=== PATIENT | male | born 1955 | race Caucasian/White ===

== ENCOUNTER 2021-05-08 08:32 | Inpatient (IN) | payer MEDICARE, OTHER ==
[~2021-05-08] VITALS: Ht 185.4 cm; Wt 99.8 kg
[~2021-05-08 08:32] MED LIST: AMITRIPTYLINE50 MG PO; ETODOLAC400 M1 PO; FINASTERIDE5 M1 PO; NEURONTIN300 MG PO; PANTOPRAZOLE SO40 MG PO; SIMVASTATIN40 MG PO; TERAZOSIN5 MG PO; TOPROL XL25 MG PO; ULTRAM50 MG PO; ZANAFLEX4 M1 PO; ZOLOFT100 MG PO
[2021-05-08 08:49] VITALS: BP 115/76
[2021-05-08 08:58] LABS: BASO % 0.3 % (0.0-1.0); EOS % 0.4 % (1.0-4.0); HEMATOCRIT 43.6 % (42.0-52.0); LYMPH # 1.1 10*3/uL (1.3-4.4); LYMPH % 10.2 % (27.0-41.0); MEAN CORPUSCULAR HGB 31.9 pg (27.0-31.0); MEAN CORPUSCULAR HGB CONC 33.9 g/dl (33.0-37.0); MEAN PLATELET VOLUME 10.6 fl (9.6-12.3); MONO # 1.5 10*3/uL (0.1-1.0); MONO % 13.3 % (3.0-9.0); NEUT # 8.3 10*3/uL (2.3-7.9); NEUT % 75.5 % (47.0-73.0); PLATELET COUNT AUTOMATED 165 10*3/uL (130-400); RED BLOOD COUNT 4.64 10*6/uL (4.50-5.90); RED CELL DISTRI WIDTH 12.6 % (0-14.5)
[2021-05-08 09:10] LABS: ACT PARTIAL THROMBO TIME 26.7 SECONDS (20.0-32.1)
[2021-05-08 09:13] LABS: ALBUMIN 3.2 gm/dl (3.1-4.5); ALKALINE PHOSPHATASE 64 U/L (45-117); BUN 19 mg/dl (7-24); CHLORIDE 109 mmol/L (98-107); CREATININE 0.97 mg/dL (0.70-1.30); POTASSIUM 3.6 mmol/L (3.5-5.1); SGOT/AST 11 IU/L (3-35); SGPT/ALT 24 U/L (12-78); SODIUM 141 mmol/L (136-145); TOTAL PROTEIN 6.4 gm/dL (6.4-8.2)
[2021-05-08 12:10] VITALS: BP 133/76
[2021-05-08] MEDS ORDERED: HYDROCODONE-AC1 EAC2 PO (13:08)
[2021-05-08] MEDS ORDERED: MELOXICAM15 MG PO (13:08)
[2021-05-08 19:36] VITALS: BP 128/65
[2021-05-08 22:09] VITALS: BP 132/62
[2021-05-09 01:54] VITALS: BP 137/63
[2021-05-09 02:15] VITALS: BP 137/81
[2021-05-09 06:00] LABS: BUN 16 mg/dl (7-24); CHLORIDE 108 mmol/L (98-107); CREATININE 0.95 mg/dL (0.70-1.30); FREE T4 0.97 ng/dl (0.76-1.46); POTASSIUM 4.3 mmol/L (3.5-5.1); SODIUM 139 mmol/L (136-145)
[2021-05-09 06:17] LABS: BASO % 0.5 % (0.0-1.0); EOS # 0.1 10*3/uL (0.0-0.4); EOS % 0.6 % (1.0-4.0); HEMATOCRIT 44.1 % (42.0-52.0); LYMPH # 0.7 10*3/uL (1.3-4.4); LYMPH % 8.9 % (27.0-41.0); MEAN CELL VOLUME 96.1 fl (80.0-94.0); MEAN CORPUSCULAR HGB 32.2 pg (27.0-31.0); MEAN CORPUSCULAR HGB CONC 33.6 g/dl (33.0-37.0); MEAN PLATELET VOLUME 10.8 fl (9.6-12.3); MONO # 0.8 10*3/uL (0.1-1.0); MONO % 10.4 % (3.0-9.0); NEUT # 6.2 10*3/uL (2.3-7.9); PLATELET COUNT AUTOMATED 135 10*3/uL (130-400); RED BLOOD COUNT 4.59 10*6/uL (4.50-5.90); RED CELL DISTRI WIDTH 12.6 % (0-14.5); WHITE BLOOD COUNT 7.9 10*3/uL (4.8-10.8)
[2021-05-09 08:00] VITALS: BP 136/74
[2021-05-09 12:00] VITALS: BP 155/78
[2021-05-09 15:57] VITALS: BP 150/82
[2021-05-09 20:00] VITALS: BP 136/84
[2021-05-10] VITALS: BP 132/88; BP 135/95
[2021-05-10] MEDS ORDERED: SIMVASTATIN5 MG PO (03:51)
[2021-05-10] MEDS ORDERED: VITAMIN C (03:52)
[2021-05-10] MEDS ORDERED: VITAMIN D3 (03:52)
[2021-05-10] MEDS ORDERED: TRAZODONE150 MG PO (03:53)
[2021-05-10 06:20] LABS: BASO % 0.1 % (0.0-1.0); EOS % 0.2 % (1.0-4.0); HEMATOCRIT 44.4 % (42.0-52.0); LYMPH # 0.6 10*3/uL (1.3-4.4); LYMPH % 7.5 % (27.0-41.0); MEAN CELL VOLUME 94.3 fl (80.0-94.0); MEAN CORPUSCULAR HGB 31.8 pg (27.0-31.0); MEAN CORPUSCULAR HGB CONC 33.8 g/dl (33.0-37.0); MONO # 0.8 10*3/uL (0.1-1.0); MONO % 9.4 % (3.0-9.0); NEUT # 6.7 10*3/uL (2.3-7.9); NEUT % 82.3 % (47.0-73.0); PLATELET COUNT AUTOMATED 156 10*3/uL (130-400); RED BLOOD COUNT 4.71 10*6/uL (4.50-5.90); RED CELL DISTRI WIDTH 12.4 % (0-14.5); WHITE BLOOD COUNT 8.1 10*3/uL (4.8-10.8)
[2021-05-10 06:28] LABS: CHLORIDE 109 mmol/L (98-107); POTASSIUM 4.3 mmol/L (3.5-5.1); SODIUM 140 mmol/L (136-145)
[2021-05-10 06:43] LABS: ALBUMIN 2.9 gm/dl (3.1-4.5); ALKALINE PHOSPHATASE 60 U/L (45-117); BUN 21 mg/dl (7-24); CREATININE 0.98 mg/dL (0.70-1.30); SGOT/AST 26 IU/L (3-35); SGPT/ALT 50 U/L (12-78); TOTAL PROTEIN 6.7 gm/dL (6.4-8.2)
[2021-05-10 08:00] VITALS: BP 133/81
[2021-05-10 12:00] VITALS: BP 128/76
[2021-05-10 20:00] VITALS: BP 150/81
[2021-05-10] MEDS ORDERED: HYDROCODONE-AC1 EAC2 PO (22:43)
[2021-05-11] VITALS: BP 126/64
[2021-05-11 08:00] VITALS: BP 128/77
[2021-05-11] MEDS ORDERED: MUCUS RELIEF600 MG PO (12:26)
[2021-05-11] MEDS ORDERED: HYDROXYZINE HCL25 MG PO (12:26)
[2021-05-11] MEDS ORDERED: AUGMENTIN 875875 MG PO (12:27)
[2021-05-11] MEDS ORDERED: AMITRIPTYLINE50 MG PO (12:29)
== END 2021-05-11 14:34 | disposition home or self-care (01) | DRG 177 ==
LOC: ED 08:32 → EDHOLD 10:52 → 4E 10:52
PROVIDERS: Internal Medicine; Student in an Organized Health Care Education/Training Program; ADMIT Internal Medicine; ATTEND Internal Medicine
DX: J15.6 Pneumonia due to other Gram-negative bacteria (principal); J96.01 Acute respiratory failure with hypoxia; G43.909 Migraine, unspecified, not intractable, without status migrainosus; H65.92 Unspecified nonsuppurative otitis media, left ear; Z20.822 Contact with and (suspected) exposure to COVID-19; R22.0 Localized swelling, mass and lump, head; E87.8 Other disorders of electrolyte and fluid balance, not elsewhere classified; R73.9 Hyperglycemia, unspecified; E80.6 Other disorders of bilirubin metabolism; F41.9 Anxiety disorder, unspecified; N40.0 Benign prostatic hyperplasia without lower urinary tract symptoms; K21.9 Gastro-esophageal reflux disease without esophagitis; I10 Essential (primary) hypertension; Z79.1 Long term (current) use of non-steroidal anti-inflammatories (NSAID); Z79.899 Other long term (current) drug therapy; Z82.49 Family history of ischemic heart disease and other diseases of the circulatory system

== ENCOUNTER 2022-07-05 06:05 | Inpatient (IN) | payer MEDICARE, OTHER ==
[~2022-07-05] VITALS: Ht 182.8 cm; Wt 89.0 kg
[~2022-07-05 06:05] MED LIST changes: +AUGMENTIN 875875 MG PO; +HYDROCODONE-AC1 EAC2 PO; +HYDROXYZINE HCL25 MG PO; +MELOXICAM15 MG PO; +MUCUS RELIEF600 MG PO; +SIMVASTATIN5 MG PO; +TRAZODONE150 MG PO; +VITAMIN C; +VITAMIN D3
[2022-07-05 06:13] VITALS: BP 130/100
[2022-07-05 06:28] LABS: BASO % 0.3 % (0.0-1.0); EOS # 0.1 10*3/uL (0.0-0.4); EOS % 1.2 % (1.0-4.0); HEMATOCRIT 52.8 % (42.0-52.0); LYMPH % 16.4 % (27.0-41.0); MEAN CELL VOLUME 90.7 fl (80.0-94.0); MEAN CORPUSCULAR HGB 31.4 pg (27.0-31.0); MEAN CORPUSCULAR HGB CONC 34.7 g/dl (33.0-37.0); MEAN PLATELET VOLUME 10.4 fl (9.6-12.3); MONO # 0.7 10*3/uL (0.1-1.0); MONO % 11.9 % (3.0-9.0); NEUT # 4.2 10*3/uL (2.3-7.9); NEUT % 69.7 % (47.0-73.0); PLATELET COUNT AUTOMATED 160 10*3/uL (130-400); RED BLOOD COUNT 5.82 10*6/uL (4.50-5.90); RED CELL DISTRI WIDTH 12.3 % (0-14.5); WHITE BLOOD COUNT 6.1 10*3/uL (4.8-10.8)
[2022-07-05 07:08] LABS: ALKALINE PHOSPHATASE 61 U/L (46-116); BUN 18 mg/dl (9-23); CHLORIDE 105 mmol/L (98-107); LIPASE 33 U/L (12-53); POTASSIUM 3.7 mmol/L (3.4-5.1); SGPT/ALT 18 U/L (10-49); TOTAL PROTEIN 7.1 gm/dL (6.0-8.0)
[2022-07-05 11:15] VITALS: BP 130/78
[2022-07-05 16:00] VITALS: BP 152/76
[2022-07-05] MEDS ORDERED: VITAMIN D375 MCG PO (16:27)
[2022-07-05] MEDS ORDERED: SERTRALINE HCL150 MG PO (16:27)
[2022-07-05] MEDS ORDERED: VENLAFAXINE37.5 M1 PO (16:27)
[2022-07-05] MEDS ORDERED: LOPRESSOR25 MG PO (16:28)
[2022-07-05] MEDS ORDERED: LIPITOR10 MG PO (16:28)
[2022-07-05] MEDS ORDERED: CETIRIZINE10 MG PO (16:29)
[2022-07-05 20:00] VITALS: BP 153/84
[2022-07-06] VITALS: BP 105/58
[2022-07-06 00:10] LABS: BILIRUBIN Negative (Negative); BLOOD Negative (Negative); CLARITY Clear (Clear); COLOR Yellow (Yellow); GLUCOSE Negative (Negative); KETONE Negative (Negative); LEUKO ESTERASE Negative (Negative); NITRITE Negative (Negative); SPECIFIC GRAVITY <= 1.005 (1.001-1.030); UROBILINOGEN 0.2 E.U./dl (0.0-1.0)
[2022-07-06 00:27] LABS: RBC 0-2 rbc/hpf (0-2)
[2022-07-06 06:48] LABS: BASO % 0.6 % (0.0-1.0); EOS # 0.1 10*3/uL (0.0-0.4); EOS % 1.4 % (1.0-4.0); HEMATOCRIT 41.2 % (42.0-52.0); LYMPH % 27.5 % (27.0-41.0); MEAN CORPUSCULAR HGB 31.4 pg (27.0-31.0); MEAN CORPUSCULAR HGB CONC 33.7 g/dl (33.0-37.0); MEAN PLATELET VOLUME 10.6 fl (9.6-12.3); MONO # 0.5 10*3/uL (0.1-1.0); MONO % 14.5 % (3.0-9.0); NEUT # 1.9 10*3/uL (2.3-7.9); NEUT % 55.7 % (47.0-73.0); PLATELET COUNT AUTOMATED 121 10*3/uL (130-400); RED BLOOD COUNT 4.43 10*6/uL (4.50-5.90); RED CELL DISTRI WIDTH 12.3 % (0-14.5); WHITE BLOOD COUNT 3.5 10*3/uL (4.8-10.8)
[2022-07-06 07:10] LABS: BUN 11 mg/dl (9-23); CHLORIDE 112 mmol/L (98-107); CHOLESTEROL 78 mg/dL (<200); FREE T4 0.96 ng/dl (0.89-1.76); POTASSIUM 3.9 mmol/L (3.4-5.1); TRIGLYCERIDES 103 mg/dl (<150)
[2022-07-06 07:27] LABS: LDL CHOLESTEROL 38 mg/dL (9-159)
[2022-07-06 08:00] VITALS: BP 162/78
[2022-07-06 08:12] LABS: VITAMIN D, 25-HYDROXY 55.8 ng/mL (30-100)
[2022-07-06 11:26] VITALS: BP 156/75
[2022-07-06] MEDS ORDERED: PANTOPRAZOLE SO40 MG PO (14:35)
[2022-07-06] MEDS ORDERED: Carafate1 GM PO (14:35)
== END 2022-07-06 15:55 | disposition home or self-care (01) | DRG 392 ==
LOC: ED 06:05 → 4E 09:18 → EDHOLD 09:18 → 4E 14:42
PROVIDERS: Emergency Medicine; Registered Nurse; ADMIT Student in an Organized Health Care Education/Training Program; ATTEND Student in an Organized Health Care Education/Training Program
DX: K52.9 Noninfective gastroenteritis and colitis, unspecified (principal); N40.0 Benign prostatic hyperplasia without lower urinary tract symptoms; K21.9 Gastro-esophageal reflux disease without esophagitis; E86.0 Dehydration; F41.9 Anxiety disorder, unspecified; R13.10 Dysphagia, unspecified; E78.5 Hyperlipidemia, unspecified; I10 Essential (primary) hypertension; Z80.59 Family history of malignant neoplasm of other urinary tract organ; Z82.49 Family history of ischemic heart disease and other diseases of the circulatory system

== ENCOUNTER 2022-07-29 08:55 | Emergency (ER) | payer MEDICARE, OTHER ==
[~2022-07-29] VITALS: Ht 185.4 cm; Wt 88.5 kg
[~2022-07-29 08:55] MED LIST changes: +CARAFATE1 GM/10 ML PO; +CETIRIZINE10 MG PO; +Carafate1 GM PO; +LIPITOR10 MG PO; +LOPRESSOR25 MG PO; +SERTRALINE HCL150 MG PO; +VENLAFAXINE37.5 M1 PO; +VITAMIN D375 MCG PO
[2022-07-29] MEDS ORDERED: AMOX-CLAV 875-1 EACH PO ×2 (12:33)
[2022-07-31] MEDS ORDERED: LIPITOR10 MG PO (17:27)
== END 2022-07-29 12:59 | disposition home or self-care (01) ==
LOC: ED 08:55
DX: H70.90 Unspecified mastoiditis, unspecified ear (principal); G43.909 Migraine, unspecified, not intractable, without status migrainosus; I10 Essential (primary) hypertension; F32.A Depression, unspecified; F41.9 Anxiety disorder, unspecified; Z98.890 Other specified postprocedural states

== ENCOUNTER → 2022-08-17 | Day surgery (SDC) | payer MEDICARE, OTHER ==
[~2022-08-17] VITALS: Ht 185.4 cm; Wt 88.5 kg
[~2022-08-17] MED LIST changes: +AMOX-CLAV 875-1 EACH PO; +CARAFATE1 G1 PO
[2022-08-17 10:22] VITALS: BP 144/90
[2022-08-17 11:25] VITALS: BP 127/60
[2022-08-17 11:37] VITALS: BP 134/71
[2022-08-17 11:55] VITALS: BP 124/70
== END | disposition home or self-care (01) ==
LOC: SDC 07-31 11:00
PROVIDERS: ATTEND Surgery
DX: Z12.11 Encounter for screening for malignant neoplasm of colon (principal); K29.50 Unspecified chronic gastritis without bleeding; K29.80 Duodenitis without bleeding; K21.9 Gastro-esophageal reflux disease without esophagitis; I10 Essential (primary) hypertension; E78.00 Pure hypercholesterolemia, unspecified; F41.9 Anxiety disorder, unspecified; F32.A Depression, unspecified; G43.909 Migraine, unspecified, not intractable, without status migrainosus; Z98.890 Other specified postprocedural states; Z79.899 Other long term (current) drug therapy

== ENCOUNTER 2024-03-03 12:18 | Emergency (ER) | payer MEDICARE, OTHER ==
[~2024-03-03] VITALS: Ht 185.4 cm; Wt 90.7 kg
[2024-03-03] MEDS ORDERED: Bacitracin Zinc 14 GM TUBE T ONE (14:30)
== END 2024-03-03 14:38 | disposition home or self-care (01) ==
LOC: ED 12:18
DX: S51.811A Laceration without foreign body of right forearm, initial encounter (principal); I10 Essential (primary) hypertension; F32.A Depression, unspecified; F41.9 Anxiety disorder, unspecified; G43.909 Migraine, unspecified, not intractable, without status migrainosus; E78.00 Pure hypercholesterolemia, unspecified; Z98.890 Other specified postprocedural states; W54.0XXA Bitten by dog, initial encounter; Y93.89 Activity, other specified; Y92.89 Other specified places as the place of occurrence of the external cause; Y99.8 Other external cause status

== ENCOUNTER → 2024-03-06 | Outpatient (CLI) | payer MEDICARE, OTHER | END | disposition home or self-care (01) | LOC: WOUNDCARE 09:21 | PROVIDERS: ATTEND Nurse Practitioner Family | DX: S41.111A Laceration without foreign body of right upper arm, initial encounter (principal); I10 Essential (primary) hypertension; K21.9 Gastro-esophageal reflux disease without esophagitis; G20.A1 Parkinson's disease without dyskinesia, without mention of fluctuations; G30.9 Alzheimer's disease, unspecified; F02.80 Dementia in other diseases classified elsewhere, unspecified severity, without behavioral disturbance, psychotic disturbance, mood disturbance, and anxiety; Z79.82 Long term (current) use of aspirin; Z79.899 Other long term (current) drug therapy; X58.XXXD Exposure to other specified factors, subsequent encounter; Y93.89 Activity, other specified; Y92.89 Other specified places as the place of occurrence of the external cause; Y99.8 Other external cause status ==

== ENCOUNTER → 2024-03-12 | Outpatient (CLI) | payer MEDICARE, OTHER | END | disposition home or self-care (01) | LOC: WOUNDCARE 02:11 | PROVIDERS: ATTEND Nurse Practitioner Family | DX: S41.111D Laceration without foreign body of right upper arm, subsequent encounter (principal); I10 Essential (primary) hypertension; K21.9 Gastro-esophageal reflux disease without esophagitis; G20.A1 Parkinson's disease without dyskinesia, without mention of fluctuations; G30.9 Alzheimer's disease, unspecified; F02.80 Dementia in other diseases classified elsewhere, unspecified severity, without behavioral disturbance, psychotic disturbance, mood disturbance, and anxiety; Z79.82 Long term (current) use of aspirin; Z79.899 Other long term (current) drug therapy; X58.XXXD Exposure to other specified factors, subsequent encounter ==

== ENCOUNTER → 2024-03-19 | Outpatient (CLI) | payer MEDICARE, OTHER | END | disposition home or self-care (01) | LOC: WOUNDCARE 00:51 | PROVIDERS: ATTEND Nurse Practitioner Family | DX: S51.811D Laceration without foreign body of right forearm, subsequent encounter (principal); S41.111D Laceration without foreign body of right upper arm, subsequent encounter; I10 Essential (primary) hypertension; K21.9 Gastro-esophageal reflux disease without esophagitis; G20.A1 Parkinson's disease without dyskinesia, without mention of fluctuations; G30.9 Alzheimer's disease, unspecified; F02.80 Dementia in other diseases classified elsewhere, unspecified severity, without behavioral disturbance, psychotic disturbance, mood disturbance, and anxiety; Z79.82 Long term (current) use of aspirin; Z79.899 Other long term (current) drug therapy; X58.XXXD Exposure to other specified factors, subsequent encounter ==

== ENCOUNTER → 2024-03-26 | Outpatient (CLI) | payer MEDICARE, OTHER | END | disposition home or self-care (01) | LOC: WOUNDCARE 01:52 | PROVIDERS: ATTEND Nurse Practitioner Family | DX: S51.811D Laceration without foreign body of right forearm, subsequent encounter (principal); S41.111D Laceration without foreign body of right upper arm, subsequent encounter; I10 Essential (primary) hypertension; K21.9 Gastro-esophageal reflux disease without esophagitis; G20.A1 Parkinson's disease without dyskinesia, without mention of fluctuations; G30.9 Alzheimer's disease, unspecified; F02.80 Dementia in other diseases classified elsewhere, unspecified severity, without behavioral disturbance, psychotic disturbance, mood disturbance, and anxiety; Z79.82 Long term (current) use of aspirin; Z79.899 Other long term (current) drug therapy; X58.XXXD Exposure to other specified factors, subsequent encounter ==

== ENCOUNTER 2024-09-09 18:03 | Emergency (ER) | payer MEDICARE, OTHER ==
[~2024-09-09] VITALS: Ht 185.4 cm; Wt 93.4 kg
[2024-09-09] MEDS ORDERED: SODIUM CHLORIDE 0.9% 1,000 ML IV ONE (19:00)
[2024-09-09] MEDS ORDERED: HYDROmorphone Hydrochloride 1 MG/ML SYR IV ONE (19:00)
[2024-09-09] MEDS ORDERED: Ondansetron Hydrochloride 4 MG/2 ML VIAL IV ONE (19:00)
[2024-09-09 19:16] LABS: BASO # 0.1 10*3/uL (0.0-0.1); BASO % 0.6 % (0.0-1.0); EOS # 0.1 10*3/uL (0.0-0.4); EOS % 1.1 % (1.0-4.0); HEMATOCRIT 43.6 % (42.0-52.0); MEAN CELL VOLUME 95.6 fl (80.0-94.0); MEAN CORPUSCULAR HGB 32.5 pg (27.0-31.0); MEAN CORPUSCULAR HGB CONC 33.9 g/dl (33.0-37.0); MEAN PLATELET VOLUME 10.1 fl (9.6-12.3); MONO # 0.7 10*3/uL (0.1-1.0); MONO % 7.8 % (3.0-9.0); NEUT # 6.8 10*3/uL (2.3-7.9); NEUT % 76.3 % (47.0-73.0); PLATELET COUNT AUTOMATED 184 10*3/uL (130-400); RED BLOOD COUNT 4.56 10*6/uL (4.50-5.90); RED CELL DISTRI WIDTH 12.8 % (0-14.5); WHITE BLOOD COUNT 8.9 10*3/uL (4.8-10.8)
[2024-09-09 19:36] LABS: ALKALINE PHOSPHATASE 71 U/L (46-116); BUN 19 mg/dl (9-23); CHLORIDE 106 mmol/L (98-107); POTASSIUM 3.4 mmol/L (3.4-5.1); TOTAL PROTEIN 6.5 gm/dL (6.0-8.0)
[2024-09-09 19:49] LABS: SGPT/ALT < 7 U/L (5-49)
[2024-09-09] MEDS ORDERED: cefTRIAXone Sodium 1 GM/10 ML SYR IV ONE (20:25)
[2024-09-09] MEDS ORDERED: Ketorolac Tromethamine 30 MG/ML VIAL IV ONE (20:25)
[2024-09-09] MEDS ORDERED: FLOMAX0.4 MG PO (21:02)
[2024-09-09] MEDS ORDERED: CIPRO500 MG PO (21:02)
[2024-09-09] MEDS ORDERED: Ondansetron4 MG PO (21:02)
[2024-09-09] MEDS ORDERED: PERCOCET 5-3251 EACH PO (21:02)
== END 2024-09-09 21:30 | disposition home or self-care (01) ==
LOC: ED 18:03
PROVIDERS: Nurse Practitioner Family
DX: N13.2 Hydronephrosis with renal and ureteral calculous obstruction (principal); I10 Essential (primary) hypertension; F32.A Depression, unspecified; F41.9 Anxiety disorder, unspecified; K21.9 Gastro-esophageal reflux disease without esophagitis; G43.909 Migraine, unspecified, not intractable, without status migrainosus; Z87.442 Personal history of urinary calculi; Z79.899 Other long term (current) drug therapy; Z98.890 Other specified postprocedural states

== ENCOUNTER 2024-09-19 12:43 | Emergency (ER) | payer OTHER ==
[~2024-09-19] VITALS: Wt 86.2 kg
[~2024-09-19 12:43] MED LIST changes: +CIPRO500 MG PO; +FLOMAX0.4 MG PO; +Ondansetron4 MG PO; +PERCOCET 5-3251 EACH PO
[2024-09-19 13:38] LABS: BASO % 0.1 % (0.0-1.0); HEMATOCRIT 44.3 % (42.0-52.0); MEAN CELL VOLUME 94.5 fl (80.0-94.0); MEAN CORPUSCULAR HGB 32.8 pg (27.0-31.0); MEAN CORPUSCULAR HGB CONC 34.8 g/dl (33.0-37.0); MEAN PLATELET VOLUME 9.8 fl (9.6-12.3); MONO # 0.7 10*3/uL (0.1-1.0); MONO % 4.1 % (3.0-9.0); NEUT # 14.4 10*3/uL (2.3-7.9); PLATELET COUNT AUTOMATED 231 10*3/uL (130-400); RED BLOOD COUNT 4.69 10*6/uL (4.50-5.90); RED CELL DISTRI WIDTH 12.5 % (0-14.5); WHITE BLOOD COUNT 16.4 10*3/uL (4.8-10.8)
[2024-09-19 14:02] LABS: ALKALINE PHOSPHATASE 69 U/L (46-116); BUN 25 mg/dl (9-23); CHLORIDE 103 mmol/L (98-107); POTASSIUM 3.3 mmol/L (3.4-5.1); TOTAL PROTEIN 6.8 gm/dL (6.0-8.0)
[2024-09-19 14:03] LABS: ETHYL ALCOHOL < 3.0 mg/dl (<3); SGPT/ALT < 7 U/L (5-49)
[2024-09-19 14:39] LABS: BILIRUBIN Negative (Negative); BLOOD Negative (Negative); CLARITY Cloudy (Clear); COLOR Yellow (Yellow); GLUCOSE Negative (Negative); KETONE Trace (Negative); LEUKO ESTERASE Negative (Negative); NITRITE Negative (Negative); PH 6.5 (4.5-8.0)
[2024-09-19 14:46] LABS: URINE AMPHETAMINES Negative (1000ng/ml); URINE BARBITURATES Negative (200ng/ml); URINE BENZODIAZEPINES Negative (200ng/ml); URINE CANNABINOIDS (THC) Positive (50ng/ml); URINE COCAINE Negative (300ng/ml); URINE METHADONE Negative (300ng/ml); URINE OPIATES Negative (300ng/ml); URINE PHENCYCLIDINE Negative (25ng/ml)
[2024-09-19 15:00] LABS: MUCOUS 1+
[2024-09-19] MEDS ORDERED: CEPHALEXIN 500 MG CAP PO ONE (15:25)
[2024-09-19] MEDS ORDERED: POTASSIUM CHLORIDE 20 MEQ TAB PO ONE (15:25)
[2024-09-19] MEDS ORDERED: ACETAMINOPHEN 325 MG TAB PO PRN (17:55)
[2024-09-19] MEDS ORDERED: Metoprolol Tartrate 25 MG TAB PO SCH (18:00)
[2024-09-19] MEDS ORDERED: Propranolol Hydrochloride 20 MG TAB PO SCH (18:00)
[2024-09-19] MEDS ORDERED: DOCUSATE SODIUM 100 MG CAP PO SCH (18:00)
[2024-09-19] MEDS ORDERED: VERAPAMIL HYDROCHLORIDE PO SCH (18:00)
[2024-09-19] MEDS ORDERED: CEPHALEXIN 500 MG CAP PO SCH (18:00)
[2024-09-19] MEDS ORDERED: CARBIDOPA-LEVO1 EAC6 PO ×3 (18:25)
[2024-09-19] MEDS ORDERED: VERAPAMIL HCL40 MG PO (18:26)
[2024-09-19] MEDS ORDERED: VENLAFAXINE HY150 M2 PO (18:28)
[2024-09-19] MEDS ORDERED: PROPRANOLOL HCL20 MG PO (18:30)
[2024-09-19] MEDS ORDERED: TOPROL XL25 MG PO (18:30)
[2024-09-19] MEDS ORDERED: COLACE100 MG PO (18:31)
[2024-09-19] MEDS ORDERED: CARBAMAZEPINE100 MG PO (18:42)
[2024-09-19] MEDS ORDERED: Carbidopa/Levodopa 25/100MG 1 TAB TAB PO SCH (20:00)
[2024-09-19] MEDS ORDERED: TRAZODONE HYDROCHLORIDE 150 MG PO SCH (22:00)
[2024-09-20] MEDS ORDERED: Carbidopa/Levodopa 25/100MG 1 TAB TAB PO SCH ×2 (07:30→12:00)
[2024-09-20] MEDS ORDERED: carBAMazepine 100 MG TAB PO SCH (08:00)
[2024-09-20] MEDS ORDERED: Venlafaxine Hydrochloride 75 MG CAP PO SCH (10:00)
== END 2024-09-19 23:23 ==
LOC: ED 12:43
PROVIDERS: Emergency Medicine
DX: F43.21 Adjustment disorder with depressed mood (principal); I10 Essential (primary) hypertension; F32.A Depression, unspecified; F41.9 Anxiety disorder, unspecified; G43.909 Migraine, unspecified, not intractable, without status migrainosus; Z20.822 Contact with and (suspected) exposure to COVID-19; Z79.899 Other long term (current) drug therapy; Z98.890 Other specified postprocedural states

== ENCOUNTER 2024-09-19 20:23 | Inpatient (IN) | payer MEDICARE, OTHER ==
[~2024-09-19] VITALS: Ht 185.4 cm; Wt 86.2 kg
[~2024-09-19 20:23] MED LIST changes: +CARBAMAZEPINE100 MG PO; +CARBIDOPA-LEVO1 EAC6 PO; +COLACE100 MG PO; +PROPRANOLOL HCL20 MG PO; +VENLAFAXINE HY150 M2 PO; +VERAPAMIL HCL40 MG PO
[2024-09-20 00:51] VITALS: BP 154/90
[2024-09-20] MEDS ORDERED: SUMAtriptan SUCCINATE 50 MG TAB PO PRN (05:25)
[2024-09-20] MEDS ORDERED: Propranolol Hydrochloride 20 MG TAB PO SCH (06:00)
[2024-09-20] MEDS ORDERED: OMEPRAZOLE 20 MG CAP PO SCH (06:00)
[2024-09-20 06:15] LABS: BASO % 0.1 % (0.0-1.0); EOS % 0.1 % (1.0-4.0); HEMATOCRIT 47.2 % (42.0-52.0); MEAN CELL VOLUME 94.4 fl (80.0-94.0); MEAN CORPUSCULAR HGB 32.6 pg (27.0-31.0); MEAN CORPUSCULAR HGB CONC 34.5 g/dl (33.0-37.0); MEAN PLATELET VOLUME 10.3 fl (9.6-12.3); MONO # 0.6 10*3/uL (0.1-1.0); MONO % 3.8 % (3.0-9.0); NEUT % 87.9 % (47.0-73.0); PLATELET COUNT AUTOMATED 274 10*3/uL (130-400); RED CELL DISTRI WIDTH 12.8 % (0-14.5); WHITE BLOOD COUNT 15.9 10*3/uL (4.8-10.8)
[2024-09-20 06:18] LABS: ALKALINE PHOSPHATASE 64 U/L (46-116); BUN 26 mg/dl (9-23); CHLORIDE 102 mmol/L (98-107); CHOLESTEROL 155 mg/dL (<200); LDL CHOLESTEROL 74 mg/dL (9-159); SGPT/ALT 25 U/L (5-49); TOTAL PROTEIN 7.6 gm/dL (6.0-8.0); TRIGLYCERIDES 135 mg/dl (<150)
[2024-09-20 08:00] VITALS: BP 147/76
[2024-09-20] MEDS ORDERED: Water, Sterile 10 ML VIAL IM PRN (08:00)
[2024-09-20] MEDS ORDERED: LORazepam 1 MG TAB PO PRN (08:00)
[2024-09-20] MEDS ORDERED: ACETAMINOPHEN 325 MG TAB PO PRN (08:00)
[2024-09-20] MEDS ORDERED: MG-AL HYDROXIDE/SIMETICONE 30 ML UDC PO PRN (08:00)
[2024-09-20] MEDS ORDERED: Ziprasidone Mesylate 20 MG VIAL IM PRN (08:00)
[2024-09-20] MEDS ORDERED: Carbidopa/Levodopa 25/100MG 1 TAB TAB PO SCH (08:00)
[2024-09-20] MEDS ORDERED: ASPIRIN ENTERIC COATED 81 MG TAB PO SCH (09:00)
[2024-09-20] MEDS ORDERED: BISACODYL 5 MG TAB PO PRN (09:00)
[2024-09-20] MEDS ORDERED: DONEPEZIL 10 MG TAB PO SCH (09:00)
[2024-09-20] MEDS ORDERED: FAMOTIDINE 20 MG TAB PO SCH (09:00)
[2024-09-20] MEDS ORDERED: Magnesium Hydroxide 30 ML UDC PO PRN (09:00)
[2024-09-20] MEDS ORDERED: VENLAFAXINE HYDROCHLORIDE PO SCH (09:00)
[2024-09-20] MEDS ORDERED: ESCITALOPRAM OXALATE 10 MG TAB PO SCH (09:00)
[2024-09-20] MEDS ORDERED: TRIAMCINOLONE ACETONIDE 0.1% OINTMENT 15 GM TUBE T SCH (09:00)
[2024-09-20] MEDS ORDERED: Menthol/Zinc Oxide 4 GM THIN T PRN (09:00)
[2024-09-20] MEDS ORDERED: Cetirizine Hydrochloride 10 MG TAB PO SCH (09:00)
[2024-09-20] MEDS ORDERED: CYANOCOBALAMIN 500 MCG TAB PO SCH (09:00)
[2024-09-20] MEDS ORDERED: Metoprolol Tartrate 25 MG TAB PO SCH (09:00)
[2024-09-20] MEDS ORDERED: Vitamin D 1,000 IU TAB (25 MCG) PO SCH (10:00)
[2024-09-20] MEDS ORDERED: Acetaminophen/Hydrocodone 5 MG/325 MG TABLET PO PRN (14:40)
[2024-09-20 20:00] VITALS: BP 173/73
[2024-09-20] MEDS ORDERED: ATORVASTATIN CALCIUM 10 MG TAB PO SCH (21:00)
[2024-09-20] MEDS ORDERED: clonAZEPAM 0.5 MG TAB PO SCH (21:00)
[2024-09-20] MEDS ORDERED: TRAZODONE HYDROCHLORIDE 150 MG PO SCH (21:00)
[2024-09-20 23:30] LABS: BILIRUBIN Negative (Negative); BLOOD Negative (Negative); CLARITY Clear (Clear); COLOR Yellow (Yellow); GLUCOSE Negative (Negative); KETONE Trace (Negative); LEUKO ESTERASE Trace (Negative); NITRITE Negative (Negative); SPECIFIC GRAVITY >= 1.030 (1.001-1.030)
[2024-09-20 23:39] LABS: RBC 0-2 rbc/hpf (0-2)
[2024-09-20 23:40] LABS: BACTERIA 1+
[2024-09-21 08:00] VITALS: BP 138/82
[2024-09-21] MEDS ORDERED: hydroCHLOROthiazide 25 MG TAB PO SCH (09:00)
[2024-09-21] MEDS ORDERED: Rivastigmine Tartrate 4.6 MG/24 HR PATCH T SCH (09:00)
[2024-09-21 20:00] VITALS: BP 185/79
[2024-09-22 06:37] LABS: BASO % 0.1 % (0.0-1.0); HEMATOCRIT 43.8 % (42.0-52.0); MEAN CELL VOLUME 96.7 fl (80.0-94.0); MEAN CORPUSCULAR HGB 33.1 pg (27.0-31.0); MEAN CORPUSCULAR HGB CONC 34.2 g/dl (33.0-37.0); MEAN PLATELET VOLUME 10.1 fl (9.6-12.3); MONO # 0.8 10*3/uL (0.1-1.0); MONO % 7.5 % (3.0-9.0); PLATELET COUNT AUTOMATED 208 10*3/uL (130-400); RED BLOOD COUNT 4.53 10*6/uL (4.50-5.90); RED CELL DISTRI WIDTH 12.5 % (0-14.5)
[2024-09-22 08:00] VITALS: BP 116/95
[2024-09-22] MEDS ORDERED: hydrOXYzine hydrochloride 50 MG/ML VIAL IM PRN (09:15)
[2024-09-22] MEDS ORDERED: hydrOXYzine hydrochloride 50 MG/ML VIAL IM ONE (09:15)
[2024-09-22] MEDS ORDERED: DIVALPROEX (DR) 500 MG TAB PO SCH (13:00)
[2024-09-22 20:00] VITALS: BP 149/72
[2024-09-22] MEDS ORDERED: Mirtazapine 15 MG TAB PO SCH (21:00)
[2024-09-23 08:00] VITALS: BP 136/71
[2024-09-23] MEDS ORDERED: Rivastigmine Tartrate 9.5 MG/24 HR PATCH T SCH (09:00)
[2024-09-23] MEDS ORDERED: LEPTOSPERMUM HONEY 4 X 5 INCH WOUND DRESSING T ONE (10:50)
[2024-09-23] MEDS ORDERED: Cyclobenzaprine Hydrochlorid 10 MG TAB PO ONE ×2 (12:00→13:10)
[2024-09-23] MEDS ORDERED: Carbidopa/Levodopa 25/100MG 1 TAB TAB PO SCH (17:00)
[2024-09-23] MEDS ORDERED: Metoprolol Tartrate 25 MG TAB PO SCH (21:00)
[2024-09-23] MEDS ORDERED: Memantine Hydrochloride 5 MG TAB PO SCH (21:00)
[2024-09-23] MEDS ORDERED: Doxycycline Hyclate 100 MG CAPSULE PO SCH (21:00)
[2024-09-24 08:18] VITALS: BP 135/93
[2024-09-24] MEDS ORDERED: clonAZEPAM 0.5 MG TAB PO SCH (11:05)
[2024-09-24] MEDS ORDERED: ASPIRIN ADULT L81 M2 PO (11:50)
[2024-09-24] MEDS ORDERED: OMEPRAZOLE MAGN20 MG PO (11:50)
[2024-09-24] MEDS ORDERED: PHARMASSURE V500 MCG PO (11:50)
[2024-09-24] MEDS ORDERED: FAMOTIDINE20 M1 PO (11:50)
[2024-09-24] MEDS ORDERED: DOXYCYCLINE MO100 MG PO (11:50)
[2024-09-24] MEDS ORDERED: VITAMIN D350 MCG PO (11:50)
[2024-09-24] MEDS ORDERED: NAMENDA-5 PO (12:08)
[2024-09-24] MEDS ORDERED: RIVASTIGMINE1 EAC1 T (12:08)
[2024-09-24] MEDS ORDERED: DIVALPROEX SOD500 MG PO (12:08)
[2024-09-24] MEDS ORDERED: MIRTAZAPINE15 M2 PO (12:08)
[2024-09-24] MEDS ORDERED: CLONAZEPAM0.5 M2 PO (12:08)
[2024-09-24] MEDS ORDERED: Carbidopa/Levodopa 25/100MG 1 TAB TAB PO SCH (13:00)
[2024-09-24] MEDS ORDERED: DIVALPROEX (DR) 500 MG TAB PO SCH (21:00)
[2024-09-24] MEDS ORDERED: Memantine Hydrochloride 5 MG TAB PO SCH (21:00)
== END 2024-09-24 13:08 | disposition home or self-care (01) | DRG 883 ==
LOC: 3N 20:23
PROVIDERS: Registered Nurse; ADMIT Psychiatry & Neurology Psychiatry; ATTEND Psychiatry & Neurology Psychiatry
PROC: GZHZZZZ Group Psychotherapy (ICD-10-PCS; principal; 2024-09-20)
PROC: GZ51ZZZ Individual Psychotherapy, Behavioral (ICD-10-PCS; 2024-09-20)
DX: F63.81 Intermittent explosive disorder (principal); N30.00 Acute cystitis without hematuria; F02.83 Dementia in other diseases classified elsewhere, unspecified severity, with mood disturbance; K21.9 Gastro-esophageal reflux disease without esophagitis; G31.83 Neurocognitive disorder with Lewy bodies; N20.0 Calculus of kidney; N40.0 Benign prostatic hyperplasia without lower urinary tract symptoms; F31.9 Bipolar disorder, unspecified; B95.62 Methicillin resistant Staphylococcus aureus infection as the cause of diseases classified elsewhere; I10 Essential (primary) hypertension; F43.21 Adjustment disorder with depressed mood; G20.A1 Parkinson's disease without dyskinesia, without mention of fluctuations; E78.5 Hyperlipidemia, unspecified; F43.10 Post-traumatic stress disorder, unspecified; Z82.49 Family history of ischemic heart disease and other diseases of the circulatory system; Z79.899 Other long term (current) drug therapy

== ENCOUNTER → 2024-09-26 | Outpatient (CLI) | payer MEDICARE, OTHER ==
[~2024-09-26] MED LIST changes: +ASPIRIN ADULT L81 M2 PO; +CLONAZEPAM0.5 M2 PO; +DIVALPROEX SOD500 MG PO; +DOXYCYCLINE MO100 MG PO; +FAMOTIDINE20 M1 PO; +MIRTAZAPINE15 M2 PO; +NAMENDA-5 PO; +OMEPRAZOLE MAGN20 MG PO; +PHARMASSURE V500 MCG PO; +RIVASTIGMINE1 EAC1 T; +VITAMIN D350 MCG PO
== END ==
LOC: WOUNDCARE 03:00
PROVIDERS: ATTEND Nurse Practitioner Family
DX: S41.112A Laceration without foreign body of left upper arm, initial encounter (principal); S41.111A Laceration without foreign body of right upper arm, initial encounter; S51.812A Laceration without foreign body of left forearm, initial encounter; I10 Essential (primary) hypertension; G30.9 Alzheimer's disease, unspecified; K21.9 Gastro-esophageal reflux disease without esophagitis; Z98.890 Other specified postprocedural states; Z79.82 Long term (current) use of aspirin; Z79.899 Other long term (current) drug therapy; X58.XXXA Exposure to other specified factors, initial encounter; Y93.89 Activity, other specified; Y92.89 Other specified places as the place of occurrence of the external cause; Y99.8 Other external cause status

== ENCOUNTER → 2024-10-03 | Outpatient (CLI) | payer MEDICARE, OTHER | LOC: WOUNDCARE 01:18 | PROVIDERS: ATTEND Nurse Practitioner Family | DX: S41.112D Laceration without foreign body of left upper arm, subsequent encounter (principal); S51.812D Laceration without foreign body of left forearm, subsequent encounter; S41.111D Laceration without foreign body of right upper arm, subsequent encounter; S51.011A Laceration without foreign body of right elbow, initial encounter; I10 Essential (primary) hypertension; K21.9 Gastro-esophageal reflux disease without esophagitis; G20.A1 Parkinson's disease without dyskinesia, without mention of fluctuations; G30.9 Alzheimer's disease, unspecified; F02.80 Dementia in other diseases classified elsewhere, unspecified severity, without behavioral disturbance, psychotic disturbance, mood disturbance, and anxiety; Z98.890 Other specified postprocedural states; Z79.82 Long term (current) use of aspirin; Z79.899 Other long term (current) drug therapy; X58.XXXA Exposure to other specified factors, initial encounter; Y93.89 Activity, other specified; Y92.89 Other specified places as the place of occurrence of the external cause; Y99.8 Other external cause status ==

== ENCOUNTER → 2024-10-17 | Outpatient (CLI) | payer MEDICARE, OTHER | LOC: WOUNDCARE 00:19 | PROVIDERS: ATTEND Nurse Practitioner Family | DX: S61.512D Laceration without foreign body of left wrist, subsequent encounter (principal); S41.112D Laceration without foreign body of left upper arm, subsequent encounter; L98.7 Excessive and redundant skin and subcutaneous tissue; I10 Essential (primary) hypertension; K21.9 Gastro-esophageal reflux disease without esophagitis; G30.9 Alzheimer's disease, unspecified; G20.A1 Parkinson's disease without dyskinesia, without mention of fluctuations; Z98.890 Other specified postprocedural states; Z79.82 Long term (current) use of aspirin; Z79.899 Other long term (current) drug therapy; X58.XXXD Exposure to other specified factors, subsequent encounter ==

== ENCOUNTER → 2024-10-24 | Outpatient (CLI) | payer MEDICARE, OTHER | LOC: WOUNDCARE 02:00 | PROVIDERS: ATTEND Nurse Practitioner Family | DX: S61.512D Laceration without foreign body of left wrist, subsequent encounter (principal); S41.112D Laceration without foreign body of left upper arm, subsequent encounter; L98.7 Excessive and redundant skin and subcutaneous tissue; I10 Essential (primary) hypertension; K21.9 Gastro-esophageal reflux disease without esophagitis; G30.9 Alzheimer's disease, unspecified; G20.A1 Parkinson's disease without dyskinesia, without mention of fluctuations; Z98.890 Other specified postprocedural states; Z79.82 Long term (current) use of aspirin; Z79.899 Other long term (current) drug therapy; X58.XXXD Exposure to other specified factors, subsequent encounter ==